=== PATIENT | female | born 1955 | race Caucasian/White ===

== ENCOUNTER 2024-01-03 11:55 | Emergency (ER) | payer SELFPAY ==
[~2024-01-03] VITALS: Ht 157.5 cm; Wt 59.4 kg
[2024-01-03 12:04] VITALS: BP 162/74; PULSE 63; RESP 18; TEMP 98.2; O2SAT 99
[2024-01-03] MEDS ORDERED: DICL100G32 TP (13:19)
[2024-01-03] MEDS ORDERED: NAPR-1704 PO (13:19)
[2024-01-03] MEDS: KETOROLAC 30 MG/ML VIAL IM ONE (13:28)
[2024-01-03 13:40] VITALS: BP 145/74; PULSE 66; RESP 16; TEMP 98; O2SAT 99
== END 2024-01-03 13:40 | disposition home or self-care (01) ==
LOC: MED 11:55
DX: S60.011A Contusion of right thumb without damage to nail, initial encounter (principal); M79.644 Pain in right finger(s); Z79.899 Other long term (current) drug therapy; W01.198A Fall on same level from slipping, tripping and stumbling with subsequent striking against other object, initial encounter; Y93.89 Activity, other specified; Y92.89 Other specified places as the place of occurrence of the external cause; Y99.8 Other external cause status
CPT/HCPCS: 29125; 73130; 96372; 99283; J1885